=== PATIENT | female | born 1955 | race Caucasian/White ===

== ENCOUNTER 2019-01-28 08:00 | Outpatient (CLI) | payer OTHER ==
[2019-01-28 21:33] LABS: T4 (THYROXINE) 5.18 ug/dL (6.09-12.23)
[2019-01-28 21:36] LABS: THYROID STIMULATING HORMONE 11.99 uIU/mL (0.34-5.60)
[2019-01-28 21:40] LABS: FREE T4 (FREE THYROXINE) 0.51 ng/dL (0.58-1.64)
[2019-01-29 11:41] LABS: T3 UPTAKE 39.6 % (32.0-48.4)
== END 2019-01-28 23:59 | disposition home or self-care (01) ==
LOC: LAB.F 08:00
PROVIDERS: ATTEND Nurse Practitioner Family
DX: E03.2 Hypothyroidism due to medicaments and other exogenous substances (principal); R53.83 Other fatigue
CPT/HCPCS: 36415; 84436; 84439; 84443; 84479; 84481; 84482; 86376; 86800

== ENCOUNTER 2019-02-05 09:23 | Outpatient (CLI) | payer OTHER ==
--- NOTE | 2019-02-05 16:19 | Ultrasound Report ---
Reason: OTH SYMPTOMS AND SIGNS INVOLVING THE CIRC AND RESP Procedure Date: 02/05/2019 Accession Number: [id number] / [id number] Procedure: US - Head or Neck Soft Tissue CPT Code: FULL RESULT: EXAM: THYROID ULTRASOUND EXAM DATE: 02/05/2019 10:15 AM. CLINICAL HISTORY: Other symptoms and signs involving the circulation and respiration. COMPARISON: HEAD OR NECK SOFT TISSUE 09/14/2016 9:37 AM THYROID 11/03/2008 3:59 PM. TECHNIQUE: Real time sonographic imaging of the thyroid was performed by the circulation worker. Multiple paper sales representative static images were saved for review. FINDINGS: THYROID GLAND: Right Lobe: 3 x 0.5 x 0.6 cm, volume 0.5 cc. Diffusely atrophic with heterogeneous echotexture. Right Lobe Nodules: None. Left Lobe: 3 x 0.7 x 0.8 cm, volume 0.9 cc. Diffusely atrophic with heterogeneous echotexture. Left Lobe Nodules: None. Isthmus: 0.2 cm AP. Isthmic Nodules: None. LYMPH NODES: No adenopathy demonstrated in the central or lateral compartment. Elongated right cervical node measures 17 x 7 x 3 mm; left cervical node measures 6 x 5 x 2 mm. OTHER: None. IMPRESSION: Stable heterogeneity and atrophy of the thyroid consistent with history of hypothyroidism following thyroiditis. Management recommendations are based on 2015 [place] [employer] Management Guidelines for Adult Patients with Thyroid Nodules and Differentiated Thyroid Cancer. RADIA
== END 2019-02-05 09:24 | disposition home or self-care (01) ==
LOC: DI 09:23
PROVIDERS: ATTEND Nurse Practitioner Family
DX: E03.9 Hypothyroidism, unspecified (principal); R09.89 Other specified symptoms and signs involving the circulatory and respiratory systems
CPT/HCPCS: 76536

== ENCOUNTER 2019-10-07 15:09 | Outpatient (CLI) | payer OTHER ==
[2019-10-07 17:33] LABS: BASOPHILS # (AUTO) 0.1 10^3/uL (0.0-0.1); BASOPHILS % (AUTO) 1.2 %; EOSINOPHILS # (AUTO) 0.5 10^3/uL (0.0-0.7); EOSINOPHILS % (AUTO) 5.6 %; HGB - HEMOGLOBIN 13.9 g/dL (12.0-16.0); LYMPHOCYTES # (AUTO) 2.3 10^3/uL (1.5-3.5); LYMPHOCYTES % (AUTO) 28.2 %; MEAN CORPUSCULAR HEMOGLOBIN 30.3 pg (27.0-31.0); MEAN CORPUSCULAR HGB CONC 32.7 g/dL (32.0-36.0); MEAN CORPUSCULAR VOLUME 92.8 fL (81.0-99.0); MONOCYTES # (AUTO) 0.4 10^3/uL (0.0-1.0); NEUTROPHILS # (AUTO) 4.9 10^3/uL (1.5-6.6); NEUTROPHILS % (AUTO) 59.6 %; PLT - PLATELET COUNT 243 10^3/uL (130-450); RED BLOOD COUNT 4.58 10^6/uL (4.20-5.40); WHITE BLOOD COUNT 8.2 x10^3/uL (4.8-10.8)
[2019-10-07 17:41] LABS: ALBUMIN 4.2 g/dL (3.2-5.5); ALBUMIN/GLOBULIN RATIO 1.7 (1.0-2.2); BILIRUBIN,TOTAL 0.4 mg/dL (0.2-1.0); CALCIUM 8.9 mg/dL (8.5-10.3); CREATININE 0.7 mg/dL (0.4-1.0); TOTAL PROTEIN 6.7 g/dL (6.7-8.2)
[2019-10-07 17:49] LABS: T4 (THYROXINE) 9.84 ug/dL (6.09-12.23)
[2019-10-07 17:53] LABS: THYROID STIMULATING HORMONE 1.47 uIU/mL (0.34-5.60)
[2019-10-11 15:26] LABS: T3 REVERSE 13 ng/dL (8-25)
== END 2019-10-07 15:10 | disposition home or self-care (01) ==
LOC: LAB.S 15:09
PROVIDERS: ATTEND Nurse Practitioner Family
DX: E03.2 Hypothyroidism due to medicaments and other exogenous substances (principal); R53.83 Other fatigue
CPT/HCPCS: 36415; 80053; 82306; 84436; 84439; 84443; 84481; 84482; 85025; 86376; 86800

== ENCOUNTER 2019-12-18 10:48 | Outpatient (CLI) | payer OTHER ==
--- NOTE | 2019-12-22 13:16 | Mammography Report ---
Reason: ROUTINE MAMMO Procedure Date: 12/18/2019 Accession Number: [id number] / [id number] Procedure: MGS - Screening Mammo Dig Bilat CPT Code: Final Report FULL RESULT: EXAM: Screening Mammo Dig Bilat DATE: 12/18/2019 11:18 AM CLINICAL HISTORY: Screening encounter. TECHNIQUE: (B) - Bilateral CC and MLO views were obtained. COMPARISON: 12/02/2014 and 07/19/2012. PARENCHYMAL PATTERN: (A) - The breast(s) demonstrate(s) scattered fibroglandular densities. FINDINGS: There are no suspicious masses, calcifications, or areas of distortion. IMPRESSION: Negative examination. BI-RADS category 1. RECOMMENDATION: (ANNUAL) - Recommend routine annual screening mammography. BI-RADS CATEGORY: (1) - Negative. STANDARD QUALIFYING STATEMENTS: 1. This examination was reviewed with the aid of Computer-Aided Detection (CAD). 2. A negative or benign imaging report should not preclude biopsy if clinically suspicious findings are present. 3. Dense breasts may obscure an underlying neoplasm. 4. This examination was reviewed without the aid of 3D breast imaging (tomosynthesis).
== END 2019-12-18 10:49 | disposition home or self-care (01) ==
LOC: DI.S 10:48
PROVIDERS: ATTEND Nurse Practitioner Family
DX: Z12.31 Encounter for screening mammogram for malignant neoplasm of breast (principal)
CPT/HCPCS: 77067

== ENCOUNTER 2020-12-15 07:34 | Outpatient (CLI) | payer OTHER ==
[2020-12-15 19:25] LABS: HEMOGLOBIN A1c% 5.1 % (4.27-6.07)
[2020-12-16 07:02] LABS: ESTRADIOL 19 pg/mL; PROGESTERONE <0.5 ng/mL
[2020-12-18 18:46] LABS: ESTRONE 14 pg/mL
== END 2020-12-15 07:35 | disposition home or self-care (01) ==
LOC: LAB.S 07:34
PROVIDERS: ATTEND Nurse Practitioner Family
DX: F41.9 Anxiety disorder, unspecified (principal); E16.2 Hypoglycemia, unspecified
CPT/HCPCS: 36415; 81599; 82670; 82679; 82947; 83036; 83525; 84144; 84270

== ENCOUNTER 2021-06-08 13:35 | Outpatient (CLI) | payer OTHER ==
[2021-06-08 20:33] LABS: THYROID STIMULATING HORMONE 0.88 uIU/mL (0.34-5.60)
[2021-06-08 20:36] LABS: FREE T3 3.16 pg/mL (2.5-3.9)
[2021-06-14 01:27] LABS: THYROID PEROXIDASE ANTIBODIES 25 IU/mL (<9)
== END 2021-06-08 13:36 | disposition home or self-care (01) ==
LOC: LAB.S 13:35
PROVIDERS: ATTEND Nurse Practitioner Family
DX: R53.83 Other fatigue (principal); E03.2 Hypothyroidism due to medicaments and other exogenous substances
CPT/HCPCS: 36415; 81599; 84436; 84442; 84443; 84479; 84481; 84482; 86376; 86800

== ENCOUNTER 2023-02-26 08:19 | Outpatient (CLI) | payer MEDICARE ==
--- NOTE | 2023-02-26 13:56 | DEXA Report ---
PROCEDURE: Dexa Spine and/or Hip INDICATIONS: POST MENOPAUSAL TECHNIQUE: Dual energy x-ray absorptiometry (DXA) was performed on a [facility]. Regions measur ed are the AP Spine, femoral neck, and if needed forearm. COMPARISON: None. FINDINGS: Lumbar Spine: Bone Mineral Density 0.898 g/cm/cm,T score -2.4, severe osteopenia Left Femoral Neck: Bone Mineral Density 0.850 g/cm/cm, T score -1.4, mild osteopenia Left Hip: Bone Mineral Density 0.909 g/cm/cm,T score -0.8, normal (T score greater or equal to -1.0: NORMAL) (T score from -1.1 to -2.4: OSTEOPENIA) (T score less than or equal to -2.5 to: OSTEOPOROSIS) Impression: Osteopenia most severe in the lumbar spine borderline osteoporosis. Patients with diagnosis of osteoporosis or osteopenia should have regular bone mineral density assess ment. For those eligible for Medicare, routine testing is allowed once every 2 years. Testing frequ ency can be increased for patients who have rapidly progressing disease or for those who are receivin g medical therapy to restore bone mass. Reviewed by: Trish Correa MD on 02/26/2023 1:54 PM PDT Approved by: Trish Correa MD on 02/26/2023 1:54 PM PDT Station ID: [id number]
== END 2023-02-26 08:20 | disposition home or self-care (01) ==
LOC: DI 08:19
PROVIDERS: ATTEND Registered Nurse
DX: M85.89 Other specified disorders of bone density and structure, multiple sites (principal); Z78.0 Asymptomatic menopausal state

== ENCOUNTER 2024-04-07 07:00 | Outpatient (CLI) | payer MEDICARE ==
--- NOTE | 2024-04-07 22:51 | XRAY Report ---
PROCEDURE: Chest 2V INDICATIONS: LLL PNEUMONIA TECHNIQUE: 2 views of the chest were obtained. COMPARISON: None. FINDINGS: Surgical changes and devices: None. Lungs and pleura: No pleural effusions or pneumothorax. Lungs are clear. Mediastinum: Mediastinal contours appear normal. Heart size is normal. Bones and chest wall: No suspicious bony lesions. Overlying soft tissues appear unremarkable. IMPRESSION: Normal two-view chest x-ray Reviewed by: Teo Albarran MD on 04/07/2024 9:49 PM AKCHANELL Approved by: Teo Albarran MD on 04/07/2024 9:49 PM AKCHANELL Station ID: [id number]
== END 2024-04-07 23:59 | disposition home or self-care (01) ==
LOC: DI.S 07:00
PROVIDERS: ATTEND Emergency Medicine
DX: J18.1 Lobar pneumonia, unspecified organism (principal)

== ENCOUNTER 2024-07-15 07:00 | Outpatient (CLI) | payer MEDICARE, OTHER ==
--- NOTE | 2024-07-16 16:41 | XRAY Report ---
PROCEDURE: Chest 2V INDICATIONS: LEFT LOWER ZONE PNEUMONIA TECHNIQUE: 2 views of the chest were acquired. COMPARISON: Chest x-ray 04/07/2024 FINDINGS: Surgical changes and devices: None. Lungs and pleura: No pleural effusions or pneumothorax. Lungs are clear. Mediastinum: Mediastinal contours appear normal. Heart size is normal. Bones and chest wall: No suspicious bony lesions. Overlying soft tissues appear unremarkable. IMPRESSION: No acute cardiopulmonary process. Reviewed by: Trish Correa MD on 07/16/2024 4:40 PM PDT Approved by: Trish Correa MD on 07/16/2024 4:40 PM PDT Station ID: [id number]
== END 2024-07-15 23:59 | disposition home or self-care (01) ==
LOC: DI.S 07:00
PROVIDERS: ATTEND Registered Nurse
DX: J18.9 Pneumonia, unspecified organism (principal)